=== PATIENT | female | born 1950 | race Caucasian/White ===

== ENCOUNTER → 2017-11-02 08:27 | Outpatient (CLI) | payer MEDICARE, OTHER, SELFPAY ==
[2017-11-02 09:44] VITALS: PULSE 65; PULSE 71; PULSE 72; PULSE 74; PULSE 76; PULSE 78; O2SAT 88; O2SAT 90; O2SAT 91; O2SAT 92; O2SAT 93
--- NOTE | 2017-11-03 05:59 | PCM.PSN.6M ---
PSN 6 Minute Walk Test - 6 Minute Walk Test 6 Minute Walk Test: 6 Minute Walk Test PSN:6-Minute Walk Test Start: 11/02/17 09:43 Freq: Status: Active Protocol: RESP.6MINW Document 11/02/17 09:44 SMB (Rec: 11/02/17 09:49 SMB [id number]) 6 Minute Walk Test Date Performed 11/02/17 Time Performed 08:43 Height 5 ft 3 in Weight: 89.811 kg Weight in Pounds 198.[address]: Oscar Moreland Assistive device used: Walker Pre-test Oxygen Delivery Method Room Air Pulse Ox (%) 92 Pulse Rate (60-100 beats/min) 65 Dyspnea Remy Scale (0-10) 0 Exertion Remy Scale (6-20) 11 1st minute Oxygen Delivery Method Room Air Pulse Ox (%) 88 Pulse Rate (60-100 beats/min) 71 2nd minute Oxygen Flow Rate (L/min) (L/min) 2 Oxygen Delivery Method Nasal Cannula Pulse Ox (%) 90 Pulse Rate (60-100 beats/min) 72 3rd minute Oxygen Flow Rate (L/min) (L/min) 2 Oxygen Delivery Method Nasal Cannula Pulse Ox (%) 90 Pulse Rate (60-100 beats/min) 78 4th minute Oxygen Flow Rate (L/min) (L/min) 2 Oxygen Delivery Method Nasal Cannula Pulse Ox (%) 91 Pulse Rate (60-100 beats/min) 71 5th minute Oxygen Flow Rate (L/min) (L/min) 2 Oxygen Delivery Method Nasal Cannula Pulse Ox (%) 90 Pulse Rate (60-100 beats/min) 78 6th minute Oxygen Flow Rate (L/min) (L/min) 2 Oxygen Delivery Method Nasal Cannula Pulse Ox (%) 91 Pulse Rate (60-100 beats/min) 74 Post-test Oxygen Flow Rate (L/min) (L/min) 2 Oxygen Delivery Method Nasal Cannula Pulse Ox (%) 93 Pulse Rate (60-100 beats/min) 76 Dyspnea Remy Scale (0-10) 3 Exertion Remy Scale (6-20) 13 Full Laps Walked 17 Partial Lap, Number of Tiles Walked 18 Total Distance Walked (ft) 1021 - Interpretation Interpretation: The patient was able to ambulate 1021 feet over the course of 6 minutes on room air with the assistance of a wheelchair used as a walker. The patient did have a lower baseline saturation of 92%. The patient desaturated to 88% in the first minute and was placed on 2 L nasal cannula. Saturations were acceptable for the remaining distance. These findings are consistent with a respiratory limitation exercise tolerance. - Recommendations Recommendations: Patient requires no supplemental oxygen at rest, but should be using 2 L nasal cannula oxygen with any exertion.
== END ==
PROVIDERS: Family Provider Family Medicine; PCP Family Medicine; Referring Provider Internal Medicine Critical Care Medicine; Visit Provider Internal Medicine Critical Care Medicine
DX: J44.9 Chronic obstructive pulmonary disease, unspecified (principal)
CPT/HCPCS: 94618

== ENCOUNTER → 2017-11-14 08:49 | Outpatient (CLI) | payer MEDICARE, OTHER, SELFPAY ==
--- NOTE | 2017-11-14 14:10 | PFT ---
INTRODUCTION: The patient is a 67-year-old female that presents for pulmonary function studies secondary to a diagnosis of COPD. Respiratory therapy reports good patient effort. Bronchodilators were used during testing. INTERPRETATION: Forced expiration spirometry demonstrates the presence of a very severe large airways obstructive ventilatory defect. There was no significant response to aerosolized bronchodilators. Spirograms and flow volume loop are consistent with underlying obstructive lung disease. Body plethysmography was performed and reveals an elevated RV to 149% of predicted, indicative of underlying air trapping. Diffusing capacity by single breath CO severely reduced at 27% of predicted. 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
== END ==
PROVIDERS: Family Provider Family Medicine; PCP Family Medicine; Referring Provider Internal Medicine Critical Care Medicine; Visit Provider Internal Medicine Critical Care Medicine
DX: J44.9 Chronic obstructive pulmonary disease, unspecified (principal); I50.32 Chronic diastolic (congestive) heart failure
CPT/HCPCS: 94060; 94726; 94729

== ENCOUNTER → 2018-04-03 10:59 | Outpatient (CLI) | payer MEDICARE, OTHER, SELFPAY ==
[2018-01-22 13:01] VITALS: BMI 33.6
[2018-04-03 11:00] VITALS: PULSE 57; PULSE 63; PULSE 73; PULSE 75; PULSE 76; PULSE 78; PULSE 79; O2SAT 86; O2SAT 87; O2SAT 90; O2SAT 91; O2SAT 92; O2SAT 93
--- NOTE | 2018-04-04 13:22 | PCM.PSN.6M ---
PSN 6 Minute Walk Test - 6 Minute Walk Test 6 Minute Walk Test: 6 Minute Walk Test PSN:6-Minute Walk Test Start: 04/03/18 11:22 Freq: Status: Active Protocol: RESP.6MINW Document 04/03/18 11:00 HG (Rec: 04/03/18 11:25 HG [id number]) 6 Minute Walk Test Date Performed 04/03/18 Time Performed 11:00 Height 5 ft 2 in Weight: 186 lb Weight in Pounds 186.[address]: Camila Daniels Assistive device used: Walker Pre-test Oxygen Delivery Method Room Air Pulse Ox (%) 92 Pulse Rate (60-100 beats/min) 57 L Dyspnea Remy Scale (0-10) 3 Exertion Remy Scale (6-20) 11 1st minute Oxygen Delivery Method Room Air Pulse Ox (%) 87 Pulse Rate (60-100 beats/min) 79 2nd minute Oxygen Flow Rate (L/min) (L/min) 2 Oxygen Delivery Method Nasal Cannula Pulse Ox (%) 86 Pulse Rate (60-100 beats/min) 75 3rd minute Oxygen Flow Rate (L/min) (L/min) 3 Oxygen Delivery Method Nasal Cannula Pulse Ox (%) 91 Pulse Rate (60-100 beats/min) 78 4th minute Oxygen Flow Rate (L/min) (L/min) 3 Oxygen Delivery Method Nasal Cannula Pulse Ox (%) 90 Pulse Rate (60-100 beats/min) 63 5th minute Oxygen Flow Rate (L/min) (L/min) 3 Oxygen Delivery Method Nasal Cannula Pulse Ox (%) 91 Pulse Rate (60-100 beats/min) 75 6th minute Oxygen Flow Rate (L/min) (L/min) 3 Oxygen Delivery Method Nasal Cannula Pulse Ox (%) 92 Pulse Rate (60-100 beats/min) 76 Post-test Oxygen Flow Rate (L/min) (L/min) 3 Oxygen Delivery Method Nasal Cannula Pulse Ox (%) 93 Pulse Rate (60-100 beats/min) 73 Dyspnea Remy Scale (0-10) 3 Exertion Remy Scale (6-20) 13 Full Laps Walked 15 Partial Lap, Number of Tiles Walked 0 Total Distance Walked (ft) 885 - Interpretation Interpretation: The patient ambulated 885 feet over the course of 6 minutes beginning on room air with use of a walker. Pretesting oxygen saturation was noted to be 92% on room air. With ambulation, the feli oxygen saturation was 86%, requiring 3 L/min of supplemental oxygen with exertion, to maintain appropriate oxygen saturations. - Recommendations Recommendations: 3 L/min of supplemental oxygen should be utilized with exertion.
== END ==
PROVIDERS: Family Provider Family Medicine; PCP Family Medicine; Referring Provider Nurse Practitioner Acute Care; Visit Provider Nurse Practitioner Acute Care
DX: J44.9 Chronic obstructive pulmonary disease, unspecified (principal)
CPT/HCPCS: 94618

== ENCOUNTER → 2018-06-15 09:31 | Outpatient (CLI) | payer MEDICARE, OTHER, SELFPAY ==
[2018-04-04 09:50] VITALS: BMI 36.0
--- NOTE | 2018-06-15 12:56 | PFT ---
INTRODUCTION: The patient is a 68-year-old female that presents for pulmonary function studies secondary to a diagnosis of COPD. Respiratory therapy reports good patient effort. Bronchodilators were used during testing. INTERPRETATION: Forced expiration spirometry demonstrates the presence of a very severe large airways obstructive ventilatory defect. There was a partial, albeit nonsignificant, response to aerosolized bronchodilators. Spirograms are of fair quality and do not plateau indicating slow emptying of the lungs. Body plethysmography was performed and reveals a decreased TLC to 3.68 L, 83% of predicted, indicative of a mild restrictive ventilatory defect. Diffusing capacity by single breath CO is severely reduced at 27% of predicted. There has been worsening in the patient's pulmonary function studies since they were last completed in November 2017. IMPRESSION: Irreversible very severe mixed ventilatory defect with symmetric reduction in diffusing capacity. Pulmonary function studies have worsened since November 2017.
== END ==
PROVIDERS: Family Provider Family Medicine; PCP Family Medicine; Referring Provider Nurse Practitioner Acute Care; Visit Provider Nurse Practitioner Acute Care
DX: J44.9 Chronic obstructive pulmonary disease, unspecified (principal)
CPT/HCPCS: 94060; 94726; 94729

== ENCOUNTER 2020-07-29 10:52 | Outpatient (RCR) | payer MEDICARE, OTHER, SELFPAY ==
[2020-05-06 11:10] VITALS: BMI 28.3
[2020-07-29 11:11] LABS: Hematocrit 36.6 % (37-47); Hemoglobin 12.6 g/dL (12.0-15.0); Mean Corp Hgb Conc 34.4 g/dL (32-36); Mean Corpuscular Hgb 33.9 pg (27.0-32.0); Mean Corpuscular Volume 98.4 fL (81-99); Mean Platelet Vol. 10.7 fl (6.2-12.0); Platelet Count 232 K/mm3 (150-450); RBC Distribution Width CV 12.7 % (11.6-14.6); RBC Distribution Width SD 45.4 fl (35.1-43.9); Red Blood Count 3.72 M/mm3 (4.2-5.4); White Blood Count 16.3 K/mm3 (4.4-11.0)
[2020-07-29 11:55] LABS: Anion Gap 8 (5-15); BUN 51 mg/dL (7-18); BUN/Creat Ratio 38.1 RATIO (10-20); Calcium,Total 8.9 mg/dL (8.5-10.1); Chloride 86 mmol/L (98-107); Creatinine, Serum 1.34 mg/dL (0.55-1.02); EST Glomerular Filtration Rate 42 mL/min (>60); Est Glom Filt Rate - Afr Amer 51 mL/min (>60); Glucose 129 mg/dL (74-106); Potassium 3.8 mmol/L (3.5-5.1); Sodium Level 131 mmol/L (136-145)
[2020-07-29 12:00] LABS: BNP,B-Type NATRIURETIC PEPTIDE 898.2 pg/mL (0-100)
== END 2020-08-05 23:59 ==
LOC: LABSPEC 10:52
PROVIDERS: PCP Nurse Practitioner Family; Visit Provider Internal Medicine Cardiovascular Disease
DX: I11.0 Hypertensive heart disease with heart failure (principal); I50.9 Heart failure, unspecified; I25.10 Atherosclerotic heart disease of native coronary artery without angina pectoris; E78.5 Hyperlipidemia, unspecified
CPT/HCPCS: 80048; 83880; 85027